=== PATIENT | male | born 1945 | race Caucasian/White ===

== ENCOUNTER 2018-01-18 22:19 | Observation (INO) | payer OTHER ==
[~2018-01-18] VITALS: Ht 177.8 cm; Wt 109.6 kg
[~2018-01-18 22:19] MED LIST: ASPI81 PO; CEPH500C3 PO; CLOP75 PO; ENAL5TAB98 PO; HYDR10TA16 PO; NITR0.4S SL; TOPR50TA PO; ZOCO10TA PO
[2018-01-18 22:30] VITALS: BP 121/61; PULSE 70; RESP 18; TEMP 98.6; O2SAT 95
[2018-01-18] MEDS ORDERED: SIMV80TA PO (22:34)
[2018-01-18] MEDS ORDERED: ENAL5TAB PO (22:34)
[2018-01-18] MEDS ORDERED: ASPI81TA23 PO (22:34)
[2018-01-18] MEDS ORDERED: METO50TA PO (22:34)
--- NOTE | 2018-01-18 22:39 | PD ---
HPI Chief Complaint: Chest pain Time Seen by Provider: 22:31 Travel History International Travel<30 days: No Contact w/Intl Traveler<30days: No Traveled to known affect area: No History of Present Illness HPI 72-year-old male presents to the emergency department by EMS transport from home for complaint of retrosternal chest pain 5/10 intensity. Patient states at home pain was 6/10 in intensity. According to retail operations manager report 3 sublingual nitroglycerin sprays were administered as well as 162 mg of aspirin. Patient prior to arrival to the emergency department at home had already taken 162 mg of aspirin. Patient takes no blood thinning agents. Patient has history of CAD with previous myocardial infarction CABG and pacemaker defibrillator placement. Pacemaker defibrillator battery was placed 2 years ago. Patient's compensation adjuster is Dr. Morton. Patient's EPS physician is Dr. Fink. Patient has history of hypertension and dyslipidemia. Patient denies diabetes. No tobacco use. Patient had associated sensation of shortness of breath and diaphoresis throughout without nausea vomiting or referred neck jaw back shoulder arm pain. Patient did not sustain a defibrillation. Patient is unable to identify exacerbating or alleviating factors. [facility] Past Medical History Narrative Medical CAD, myocardial infarction, cardiac catheterization, pacemaker defibrillator, CABG, hypertension, dyslipidemia; alcohol use in the nursing notes Autoimmune Disease: No Blood Disorders: No Anxiety: Yes Heart Rhythm Problems: No Cancer: No Cardiovascular Problems: Yes High Cholesterol: No Chemotherapy: No Chest Pain: Yes Congestive Heart Failure: Yes Endocrine: No Genitourinary: No Headaches: Yes Hypertension: Yes Musculoskeletal: No Neurologic: No Respiratory: No Myocardial Infarction: Yes Radiation Therapy: No Past Surgical History Abdominal Surgery: No AICD: Yes (micron) Cardiac Surgery: Yes (cabg 03/01) Ear Surgery: No Endocrine Surgery: No Eye Surgery: No Gynecologic Surgery: No Joint Replacement: No Oral Surgery: No Pacemaker: No Thoracic Surgery: No Social History Alcohol Use: Yes (beer q several months) Tobacco Use: No Substance Use: No Allergies-Medications (Allergen,Severity, Reaction): Coded Allergies: No Known Allergies (Verified Allergy, Unknown, 01/19/18) Reported Meds & Prescriptions Reported Meds & Active Scripts Active Reported Enalapril (Enalapril Maleate) 5 Mg Tab 5 Mg PO BID Simvastatin 80 Mg Tab 80 Mg PO DAILY Aspirin EC (Aspirin) 81 Mg Tabdr 81 Mg PO DAILY Metoprolol Tartrate 50 Mg Tab 50 Mg PO BID Review of Systems Except as stated in HPI: all other systems reviewed are Neg General / Constitutional: No: Fever, Chills HENT: No: Congestion Cardiovascular: Positive: Chest Pain or Discomfort, Diaphoresis Respiratory: Positive: Shortness of Breath Gastrointestinal: No: Nausea, Vomiting, Diarrhea, Abdominal Pain Genitourinary: No: Dysuria, Flank Pain Musculoskeletal: No: Myalgias, Arthralgias Skin: No Rash Neurologic: No: Weakness, Dizziness, Syncope Psychiatric: No: Anxiety Hematologic/Lymphatic: No: Easy Bruising Physical Exam Narrative GENERAL: Well-developed well-nourished male no acute distress no respiratory distress SKIN: Warm and dry. HEAD: Normocephalic. EYES: No scleral icterus. No injection or drainage. NECK: Supple, trachea midline. No JVD or lymphadenopathy. CARDIOVASCULAR: Regular rate and rhythm without murmurs, gallops, or rubs. Chest wall: Pacemaker defibrillator left chest wall RESPIRATORY: Breath sounds equal bilaterally. No accessory muscle use. GASTROINTESTINAL: Abdomen soft, non-tender, nondistended. MUSCULOSKELETAL: No cyanosis, or edema. Bilateral radial and dorsalis pedis pulses 2+ to palpation BACK: Nontender without obvious deformity. No CVA tenderness. Data Data Last Documented VS Vital Signs Date Time Temp Pulse Resp B/P (MAP) Pulse Ox O2 Delivery O2 Flow Rate FiO2 01/19/18 00:20 15 01/18/18 23:15 72 134/64 (87) 96 Room Air 01/18/18 22:30 98.6 Orders Orders Electrocardiogram (01/18/18 22:31) Basic Metabolic Panel (Bmp) (01/18/18 22:31) Ckmb (Isoenzyme) Profile (01/18/18 22:31) Complete Blood Count With Diff (01/18/18 22:31) Magnesium (Mg) (01/18/18 22:31) Prothrombin Time / Inr (Pt) (01/18/18 22:31) Act Partial Throm Time (Ptt) (01/18/18 22:31) Troponin I (01/18/18 22:31) Ecg Monitoring (01/18/18 22:31) Bilateral Bp Monitoring (01/18/18 22:31) Iv Access Insert/Monitor (01/18/18 22:31) Oximetry (01/18/18 22:31) Oxygen Administration (01/18/18 22:31) Nitroglycerin 2% Oint (Nitroglycerin 2% (01/18/18 22:45) Sodium Chloride 0.9% Flush (Ns Flush) (01/18/18 22:45) Sodium Chlorid 0.9% 500 Ml Inj (Ns 500 M (01/18/18 22:45) Chest, Single Ap (01/18/18 ) Morphine Inj (Morphine Inj) (01/18/18 23:30) Morphine Inj (Morphine Inj) (01/18/18 23:35) Ondansetron Odt (Zofran Odt) (01/19/18 00:00) CKMB (01/18/18 22:35) CKMB% (01/18/18 22:35) Admit Order (Ed Use Only) (01/19/18 ) Leak Hunter / Telemetry DOTTIE.Q8H (01/19/18 00:47) Diet Heart Healthy (01/19/18 Breakfast) Activity Oob With Assistance (01/19/18 00:47) Notify Dr: Other (01/19/18 00:47) Labs Laboratory Tests Test 01/18/18 22:35 White Blood Count 15.5 TH/MM3 Red Blood Count 4.64 MIL/MM3 Hemoglobin 13.4 GM/DL Hematocrit 39.8 % Mean Corpuscular Volume 85.7 FL Mean Corpuscular Hemoglobin 28.9 PG Mean Corpuscular Hemoglobin Concent 33.7 % Red Cell Distribution Width 12.6 % Platelet Count 263 TH/MM3 Mean Platelet Volume 8.5 FL Neutrophils (%) (Auto) 55.3 % Lymphocytes (%) (Auto) 33.9 % Monocytes (%) (Auto) 6.9 % Eosinophils (%) (Auto) 3.3 % Basophils (%) (Auto) 0.6 % Neutrophils # (Auto) 8.6 TH/MM3 Lymphocytes # (Auto) 5.3 TH/MM3 Monocytes # (Auto) 1.1 TH/MM3 Eosinophils # (Auto) 0.5 TH/MM3 Basophils # (Auto) 0.1 TH/MM3 CBC Comment AUTO DIFF Differential Total Cells Counted 100 Neutrophils % (Manual) 42 % Lymphocytes % 49 % Monocytes % 8 % Basophils % 1 % Neutrophils # (Manual) 6.5 TH/MM3 Differential Comment FINAL DIFF MANUAL Platelet Estimate NORMAL Platelet Morphology Comment NORMAL Red Cell Morphology Comment NORMAL Prothrombin Time 10.7 SEC Prothromb Time International Ratio 1.1 RATIO Activated Partial Thromboplast Time 25.9 SEC Blood Urea Nitrogen 19 MG/DL Creatinine 1.04 MG/DL Random Glucose 140 MG/DL Calcium Level 9.3 MG/DL Magnesium Level 2.0 MG/DL Sodium Level 140 MEQ/L Potassium Level 4.0 MEQ/L Chloride Level 104 MEQ/L Carbon Dioxide Level 28.4 MEQ/L Anion Gap 8 MEQ/L Estimat Glomerular Filtration Rate 70 ML/MIN Total Creatine Kinase 159 U/L Creatine Kinase MB 0.6 NG/ML Troponin I LESS THAN 0.02 NG/ML MDM Medical Decision Making Medical Screen Exam Complete: Yes Emergency Medical Condition: Yes Medical Record Reviewed: Yes Interpretation(s) EKG paced atrial ventricular rhythm rate [address] elevation V2 which is noted on previous EKG 01/30/10 Last Impressions Chest X-Ray 01/18/18 0000 Signed Impressions: CONCLUSION: No acute cardiopulmonary disease. Vital Signs Date Time Temp Pulse Resp B/P (MAP) Pulse Ox O2 Delivery O2 Flow Rate FiO2 01/18/18 23:15 72 16 134/64 (87) 96 Room Air 01/18/18 22:30 98.6 70 18 121/61 (81) 95 CBC & BMP Diagram 01/18/18 22:35 Calcium Level 9.3, Magnesium Level 2.0 Troponin I is less than 0.02, not elevated; CK is 159, elevated CK-MB is 0.6 not elevated Differential Diagnosis Chest pain, ACS, myocardial infarction, arrhythmia, CHF, PE; also to consider musculoskeletal pain esophageal spasm gastritis peptic ulcer disease biliary colic pancreatitis Narrative Course Patient placed on threat monitoring analyst with continuous pulse oximetry; EKG performed shows atrial and ventricle paced rhythm; specimens collected and sent for resulting; patient has received 324 mg of aspirin prior to arrival to the emergency department 3 sublingual nitroglycerin; Nitropaste 1 inch placed to the chest wall and maintenance fluids 50 cc/h normal saline administered Patient resting comfortably with patient's family at bedside aware that first set of cardiac enzymes are in normal range not elevated Patient is aware of plan for observation admission and call placed to [facility] MD Dr Maddox for admission Physician Communication Physician Communication discussed with Dr Ahmed Diagnosis Primary Impression: Chest pain Qualified Codes: R07.2 - Precordial pain Additional Impressions: History of ASCVD (arteriosclerotic cardiovascular disease) H/O acute myocardial infarction Admitting Information Admitting Physician Requests: Observation Merry Stone MD January 18, 2018 22:39
[2018-01-18] MEDS ORDERED: NITROGLYCERIN 2% OINT 1 GM PACKET TOP ONE (22:45)
[2018-01-18] MEDS ORDERED: SODIUM CHLORIDE 0.9% FLUSH 10 ML FLUSH IVF PRN (22:45)
[2018-01-18] MEDS ORDERED: SODIUM CHLORID 0.9% 500 ML INJ 500 ML IV SCH (22:45)
--- NOTE | 2018-01-18 22:52 | RADRPT ---
EXAM DATE: 01/18/2018 10:44 PM EDT AGE/SEX: 72 years / Male INDICATIONS: Chest pain CLINICAL DATA: This is the patient's initial encounter. Patient reports that signs and symptoms have been present for 1 day and indicates a pain score of 7/10. MEDICAL/SURGICAL HISTORY: Cardiovascular disease. CABG. Pacemaker. COMPARISON: No prior [facility] exams available for comparison. FINDINGS: A single AP erect portable view of the chest was obtained and demonstrates the patient status post me jennie sternotomy for bypass grafting procedure. The heart size is moderately enlarged. There is a left subclavian A-V sequential transvenous pacer in place with defibrillator lead. No confluent infiltrat es or effusions are identified. There is apparent mild scarring. The bony thorax is intact. CONCLUSION: No acute cardiopulmonary disease. Electronically signed by: Obey Addison MD 01/18/2018 10:51 PM EDT
[2018-01-18 23:15] VITALS: BP 134/64; PULSE 72; RESP 16; O2SAT 96
[2018-01-18 23:30] VITALS: BP 121/57; PULSE 68; RESP 16; O2SAT 97
[2018-01-18 23:30] LABS: AUTOMATED NEUTROPHIL # 8.6 TH/MM3 (1.8-7.7); BASOPHIL # 0.1 TH/MM3 (0-0.2); BASOPHIL % 0.6 % (0.0-2.0); EOSINOPHIL # 0.5 TH/MM3 (0-0.4); EOSINOPHIL % 3.3 % (0.0-4.0); HEMATOCRIT 39.8 % (39.0-51.0); HEMOGLOBIN 13.4 GM/DL (13.0-17.0); LYMPH % 33.9 % (9.0-44.0); LYMPHOCYTE # 5.3 TH/MM3 (1.0-4.8); MEAN CELL VOLUME 85.7 FL (80.0-100.0); MEAN CORPUSCULAR HEMOGLOBIN 28.9 PG (27.0-34.0); MEAN CORPUSCULAR HGB CONC 33.7 % (32.0-36.0); MEAN PLATELET VOLUME 8.5 FL (7.0-11.0); MONO % 6.9 % (0.0-8.0); MONOCYTE # 1.1 TH/MM3 (0-0.9); NEUT % 55.3 % (16.0-70.0); PLATELET COUNT 263 TH/MM3 (150-450); RED BLOOD COUNT 4.64 MIL/MM3 (4.50-5.90); RED CELL DISTRIBUTION WIDTH 12.6 % (11.6-17.2); WHITE BLOOD COUNT 15.5 TH/MM3 (4.0-11.0)
[2018-01-18] MEDS ORDERED: ONDANSETRON HCL 4 MG/2 ML VIAL IV PUSH ONE (23:30)
[2018-01-18] MEDS ORDERED: MORPHINE SULFATE 2 MG/ML SYRINGE IV PUSH ONE (23:30)
[2018-01-18] MEDS ORDERED: MORPHINE SULFATE 4 MG/ML INJ ONE (23:35)
[2018-01-18 23:40] LABS: INTERNATIONAL NORMALIZED RATIO 1.1 RATIO; PROTHROMBIN TIME - PATIENT 10.7 SEC (9.8-11.6)
[2018-01-18 23:54] LABS: BICARBONATE 28.4 MEQ/L (21.0-32.0); BLOOD UREA NITROGEN 19 MG/DL (7-18); CALCIUM 9.3 MG/DL (8.5-10.1); CHLORIDE 104 MEQ/L (98-107); CREATININE 1.04 MG/DL (0.60-1.30); GLOMERULAR FILTRATION RATE 70 ML/MIN (>89); GLUCOSE,RANDOM 140 MG/DL (74-106); SODIUM (NA) 140 MEQ/L (136-145); TROPONIN I LESS THAN 0.02 NG/ML (0.02-0.05)
[2018-01-19] VITALS (16 sets, daily range): BP systolic 99–136; BP diastolic 51–78; PULSE 68–79; RESP 15–22; TEMP 98–98.4; O2SAT 95–99
[2018-01-19] MEDS ORDERED: ONDANSETRON ODT 4 MG TAB PO ONE
[2018-01-19] MEDS ORDERED: IOHEXOL 350 MG/ML 100 ML BTL (for Cath Lab) OTHER ONE (00:50)
[2018-01-19] MEDS ORDERED: NALOXONE HCL 0.4 MG/ML AMP IV PUSH PRN (01:00)
[2018-01-19] MEDS ORDERED: SODIUM CHLORIDE 0.9% FLUSH 10 ML FLUSH IV FLUSH PRN (01:00)
[2018-01-19] MEDS ORDERED: BISACODYL 10 MG SUPP RECTAL PRN (01:00)
[2018-01-19] MEDS ORDERED: LACTULOSE SYRUP 20 GM/30 ML CUP PO PRN (01:00)
[2018-01-19] MEDS ORDERED: MAGNESIUM HYDROXIDE SUSP 30 ML CUP PO PRN (01:00)
[2018-01-19] MEDS ORDERED: SENNOSIDES 8.6 MG TAB PO PRN (01:00)
[2018-01-19] MEDS ORDERED: ACETAMINOPHEN 325 MG TAB PO PRN (01:00)
--- NOTE | 2018-01-19 01:41 | HHI.HP ---
[facility] Unknown Admission Diagnosis chest pain; h/o NM/CAD Diagnoses: Chief Complaint: Chest pain Travel History International Travel<30 Days: No Contact w/Intl Traveler <30 Da: No Traveled to Known Affected Are: No History of Present Illness 72-year-old male with a history of anxiety, CHF, hypertension, CAD, NM, pacemaker/defibrillator presents to the ED with complaints of chest pain. Patient states about 7 PM yesterday evening he developed chest pressure, 7/10, constant with radiation to his back and associated shortness of breath and diaphoresis. He states it has felt the same as his other heart attack in the past. He states so far the morphine has subsided the pain. He is unsure of the last time he has had a cardiac cath but he does follow with Dr. Morton outpatient. He denies any recent illness no fever or chills. Review of Systems Except as stated in HPI: all other systems reviewed are Neg Past Family Social History Past Medical History CAD NM CHF Hypertension Dyslipidemia Past Surgical History Pacemaker/defibrillator CABG 2004 Reported Medications Reported Meds & Active Scripts Active Reported Enalapril (Enalapril Maleate) 5 Mg Tab 5 Mg PO BID Simvastatin 80 Mg Tab 80 Mg PO DAILY Aspirin EC (Aspirin) 81 Mg Tabdr 81 Mg PO DAILY Metoprolol Tartrate 50 Mg Tab 50 Mg PO BID Allergies: Coded Allergies: No Known Allergies (Verified Allergy, Unknown, 01/19/18) Active Ordered Medications Current Medications Medications (Trade) Dose Ordered Sig/Ruth Ann Route Start Time Stop Time Status Last Admin Sodium Chloride 500 ml @ 50 mls/hr Q10H IV 01/18/18 22:45 01/19/18 08:44 01/18/18 23:16 (NS Flush) 2 ml UNSCH PRN IV FLUSH 01/19/18 01:00 (NS Flush) 2 ml BID IV FLUSH 01/19/18 09:00 (Tylenol) 650 mg Q4H PRN PO 01/19/18 01:00 (Lovenox Inj) 40 mg Q24H SQ 01/19/18 03:00 (Narcan Inj) 0.4 mg UNSCH PRN IV PUSH 01/19/18 01:00 (Milk Of Magnesia Liq) 30 ml Q12H PRN PO 01/19/18 01:00 (Senokot) 17.2 mg Q12H PRN PO 01/19/18 01:00 (Dulcolax Supp) 10 mg DAILY PRN RECTAL 01/19/18 01:00 (Lactulose Liq) 30 ml DAILY PRN PO 01/19/18 01:00 Family History Family history significant for heart disease Social History Patient denies any tobacco, alcohol or illicit drug use Physical Exam Vital Signs Vital Signs Date Time Temp Pulse Resp B/P (MAP) Pulse Ox O2 Delivery O2 Flow Rate FiO2 01/18/18 23:15 72 16 134/64 (87) 96 Room Air 01/18/18 22:30 98.6 70 18 121/61 (81) 95 Physical Exam GENERAL: This is a well-nourished, obese patient, in no apparent distress. SKIN: No rashes, ecchymoses or lesions. Cool and dry. HEAD: Atraumatic. Normocephalic. No temporal or scalp tenderness. EYES: Pupils equal round and reactive. Extraocular motions intact. No scleral icterus. No injection or drainage. CARDIOVASCULAR: Regular rate and rhythm without murmurs, gallops, or rubs. RESPIRATORY: Clear to auscultation. Breath sounds equal bilaterally. No wheezes , rales, or rhonchi. GASTROINTESTINAL: Abdomen soft, non-tender, nondistended. MUSCULOSKELETAL: Extremities without clubbing, cyanosis, or edema.No calf tenderness. NEUROLOGICAL: Awake and alert. Normal speech. Laboratory Laboratory Tests Test 01/18/18 22:35 White Blood Count 15.5 Red Blood Count 4.64 Hemoglobin 13.4 Hematocrit 39.8 Mean Corpuscular Volume 85.7 Mean Corpuscular Hemoglobin 28.9 Mean Corpuscular Hemoglobin Concent 33.7 Red Cell Distribution Width 12.6 Platelet Count 263 Mean Platelet Volume 8.5 Neutrophils (%) (Auto) 55.3 Lymphocytes (%) (Auto) 33.9 Monocytes (%) (Auto) 6.9 Eosinophils (%) (Auto) 3.3 Basophils (%) (Auto) 0.6 Neutrophils # (Auto) 8.6 Lymphocytes # (Auto) 5.3 Monocytes # (Auto) 1.1 Eosinophils # (Auto) 0.5 Basophils # (Auto) 0.1 CBC Comment AUTO DIFF Prothrombin Time 10.7 Prothromb Time International Ratio 1.1 Activated Partial Thromboplast Time 25.9 Blood Urea Nitrogen 19 Creatinine 1.04 Random Glucose 140 Calcium Level 9.3 Magnesium Level 2.0 Sodium Level 140 Potassium Level 4.0 Chloride Level 104 Carbon Dioxide Level 28.4 Anion Gap 8 Estimat Glomerular Filtration Rate 70 Total Creatine Kinase 159 Creatine Kinase MB 0.6 Troponin I LESS THAN 0.02 Result Diagram: 01/18/18223401/18/182234 Imaging Last Impressions Chest X-Ray 01/18/18 0000 Signed Impressions: CONCLUSION: No acute cardiopulmonary disease. Caprini VTE Risk Assessment Caprini VTE Risk Assessment: Mod/High Risk (score >= 2) Caprini Risk Assessment Model Point Value = 1 Point Value = 2 Point Value = 3 Point Value = 5 Age 41-60 Minor surgery BMI > 25 kg/m2 Swollen legs Varicose veins or History of unexplained or recurrent spontaneous Oral contraceptives or hormone replacement Sepsis (< 1 month) Serious lung disease, including pneumonia (< 1 month) Abnormal pulmonary function Acute myocardial infarction Congestive heart failure (< 1 month) History of inflammatory bowel disease Medical patient at bed rest Age 61-74 Arthroscopic surgery Major open surgery (> 45 min) Laparoscopic surgery (> 45 min) Malignancy Confined to bed (> 72 hours) Immobilizing plaster cast Central venous access Age >= 75 History of VTE Family history of VTE Factor V Leiden Prothrombin [id number] Lupus anticoagulant Anticardiolipin antibodies Elevated serum homocysteine Heparin-induced thrombocytopenia Other congenital or acquired thrombophilia Stroke (< 1 month) Elective arthroplasty Hip, pelvis, or leg fracture Acute spinal cord injury (< 1 month) Prophylaxis Regimen Total Risk Factor Score Risk Level Prophylaxis Regimen 0-1 Low Early ambulation 2 Moderate Order ONE of the following: *Sequential Compression Device (SCD) *Heparin 5000 units SQ BID 3-4 Higher Order ONE of the following medications: *Heparin 5000 units SQ TID *Enoxaparin/Lovenox 40 mg SQ daily (WT < 150 kg, CrCl > 30 mL/min) *Enoxaparin/Lovenox 30 mg SQ daily (WT < 150 kg, CrCl > 10-29 mL/min) *Enoxaparin/Lovenox 30 mg SQ BID (WT < 150 kg, CrCl > 30 mL/min) AND/OR *Sequential Compression Device (SCD) 5 or more Highest Order ONE of the following medications: *Heparin 5000 units SQ TID (Preferred with Epidurals) *Enoxaparin/Lovenox 40 mg SQ daily (WT < 150 kg, CrCl > 30 mL/min) *Enoxaparin/Lovenox 30 mg SQ daily (WT < 150 kg, CrCl > 10-29 mL/min) *Enoxaparin/Lovenox 30 mg SQ BID (WT < 150 kg, CrCl > 30 mL/min) AND *Sequential Compression Device (SCD) Assessment and Plan Assessment and Plan 72-year-old male with a history of anxiety, CHF, hypertension, CAD, NM, pacemaker/defibrillator presents to the ED with complaints of chest pain. Chest pain, rule out ACS Troponin 0.02 EKG reviewed and shows a paced rhythm -Serial troponin and EKGs -Monitor telemetry -Continue Nitropaste Q6H Leukocytosis, WBC 15.5 likely stress related -Trend CBC -Chest x-ray reviewed and shows no acute pulmonary disease Hypertension, chronic, controlled -Resume home medications enalapril and metoprolol Hyperlipidemia, chronic-resume home simvastatin DVT prophylaxis: Lovenox Discussed Condition With Patient and RN Maude Peter January 19, 2018 01:41
[2018-01-19 01:53] LABS: BASOPHILS 1 % (0-2); LYMPHOCYTES 49 % (9-44); MONOCYTES 8 % (0-8); NEUTROPHIL # MANUAL DIFF 6.5 TH/MM3 (1.8-7.7); POLYS (SEG NEUTROPHILS) 42 % (16-70)
[2018-01-19] MEDS ORDERED: HEPARIN SODIUM - IV 10,000 UNITS/10 ML VIAL IV PUSH ONE (05:45)
[2018-01-19] MEDS ORDERED: HEPARIN-D5W 25,000 U/250 ML 250 ML IV PRN (05:45)
[2018-01-19] MEDS ORDERED: NITROGLYCERIN 2% OINT 1 GM PACKET TOPICAL SCH (06:00)
[2018-01-19] MEDS: ENOXAPARIN SODIUM 40 MG/0.4 ML SYRINGE SQ SCH (06:05)
[2018-01-19] MEDS ORDERED: MIDAZOLAM HCL 2 MG/2 ML VIAL IV PUSH SCH (07:45)
[2018-01-19] MEDS ORDERED: DIAZEPAM 10 MG TAB PO SCH (07:45)
[2018-01-19] MEDS ORDERED: diphenhydrAMINE HCL 50 MG CAP PO SCH (07:45)
--- NOTE | 2018-01-19 08:15 | MB ---
cc: Mars Morton MD DATE: 01/19/2018 REASON FOR CONSULTATION: Chest pain, abnormal cardiac enzymes. HISTORY OF PRESENT ILLNESS: The patient is a 72-year-old white male with a history of ischemic cardiomyopathy, coronary artery disease, hypertension, AICD implant, who was in his usual state of health up until 7 p.m. last night when he began to experience substernal chest pressure without associated shortness of breath, nausea or diaphoresis. The chest discomfort persisted for at least the next 2-3 hours and was considerably relieved with intravenous morphine. He denies any other chest discomforts. He also denies pleurisy, dizziness, syncope, near syncope, palpitations, pedal edema, paroxysmal nocturnal dyspnea. PAST MEDICAL HISTORY: 1. Coronary artery disease, status post myocardial infarction in 1997, status post anterior myocardial infarction February 2005. In February 2005, he subsequently underwent a coronary artery bypass graft surgery with a left internal mammary artery to the LAD, jump graft from the left internal mammary artery to the diagonal, 3 separate vein grafts to the ramus intermedius, obtuse marginal and posterior descending artery. March 2006, Dr. Myron Olivas performed stent of the ostium and a vein graft to the posterior descending artery with a 3.5 mm Cypher stent. In April 2007, Dr. Myron Olivas performed stent of the jump graft to the diagonal with a 2.5 mm Cypher and apparently just angioplasty of the proximal vein graft to the posterior descending artery. 2. Severe ischemic cardiomyopathy with ejection fraction 30-35% by echo 09/11/2015. 3. History of Medtronic AICD implant. 4. Hyperlipidemia. 5. Hypertension. CARDIAC MEDICATIONS AT HOME: 1. Metoprolol tartrate 50 mg b.i.d. 2. Ecotrin 81 mg daily. 3. Simvastatin 80 mg at bedtime. 4. Enalapril 5 mg b.i.d. ALLERGIES: NO KNOWN DRUG ALLERGIES. FAMILY HISTORY: Noncontributory. SOCIAL HISTORY: The patient is a former smoker. There is no history of alcohol abuse. REVIEW OF SYSTEMS: As in history of present illness, otherwise negative or noncontributory. He also denies headache, abdominal pain, melena, dyspepsia, bright red blood per rectum, recent flu symptoms. PHYSICAL EXAMINATION: VITAL SIGNS: His blood pressure 112/56 with a pulse of 70, respirations 16. GENERAL: He is a well-developed, well-nourished white male in no acute distress. NECK: Jugular venous pressure is normal. Carotid pulses are 2+ bilaterally and without bruits. CHEST: Reveals clear lungs feldman. CARDIAC: He has a regular rhythm and rate without S3, S4, or murmur. ABDOMEN: He has a soft, nontender abdomen. Bowel sounds are present. There is no definite hepatosplenomegaly. EXTREMITIES: Reveals no clubbing, cyanosis or edema. Peripheral pulses are normal throughout. LABORATORY DATA: EKG shows atrial sensed ventricular paced rhythm. LABORATORY DATA: Includes WBC 15.5, hemoglobin 13.4, platelets 263. Potassium 4.0, BUN 19, creatinine 1.04, troponin 1.29, CK 159, INR 1.1. Chest x-ray shows no acute disease. IMPRESSION: Probable non-ST elevation myocardial infarction in this is a 72-year-old white male with a history of coronary artery disease, severe ischemic cardiomyopathy, hypertension, hyperlipidemia, automated implantable cardioverter defibrillator implant. At this time, he is angina free. His symptoms and elevation in troponin level are most suggestive of unstable angina/non-ST elevation myocardial infarction. Because of the instability of his symptoms, he has been recommended cardiac catheterization with possible percutaneous coronary or graft intervention. The nature of these procedures and potential risks including, but not limited to , myocardial infarction, stroke, arrhythmia, bleeding, infection, and renal failure have been outlined to the patient. He agrees to proceed. RECOMMENDATIONS: 1. Cardiac catheterization today. 2. Continue his usual home cardiac medications. 3. Continue heparin drip. 4. Check a fasting lipid profile. Mars Morton MD G[facility]/DL , 07:45 AM , 08:14 AM BARI
[2018-01-19] MEDS: SODIUM CHLORIDE 0.9% FLUSH 10 ML FLUSH IV FLUSH SCH ×2 (09:00→20:29)
[2018-01-19] MEDS: METOPROLOL TARTRATE 50 MG TAB PO SCH ×2 (10:15→20:28)
[2018-01-19] MEDS: ATORVASTATIN 40 MG TAB PO SCH (10:15)
[2018-01-19] MEDS: ENALAPRIL MALEATE 5 MG TAB PO SCH ×2 (10:25→20:28)
[2018-01-19] MEDS ORDERED: HEPARIN SODIUM - IV 10,000 UNITS/10 ML VIAL IV PUSH PRN ×2 (11:45)
[2018-01-19] MEDS ORDERED: MIDAZOLAM HCL 2 MG/2 ML VIAL ONE (12:29)
[2018-01-19] MEDS ORDERED: HEPARIN-NS/PF INJ 1,500 ML ONE (12:29)
[2018-01-19] MEDS ORDERED: LIDOCAINE HCL 1% PF 30 ML VIAL ONE (12:59)
[2018-01-19] MEDS ORDERED: HEPARIN SODIUM - IV 10,000 UNITS/10 ML VIAL ONE (13:30)
[2018-01-19] MEDS ORDERED: SODIUM CHLOR 0.9% 1000 ML INJ 1,000 ML IV SCH (14:05)
--- NOTE | 2018-01-19 14:14 | CATHPROC ---
Desktime HIS Report Study Information Study Number Admission Scheduled Start Study Start [id number] Jan 19 2018 12:49AM 01/19/2018 Jan 19 2018 11:43AM [place] [facility] Cardiac Catheterization Admit Source Facility Department Emergency department [facility] - Social Sciences Research Scientist Physician and Clinical Staff Initial Mars Spence Vocational Examiner Shayne RN, Roscoe RecordMarga Burns,RT(R) Scrub Janett Sosa ,RT(R) Procedures Performed Procedure Location (Site) Vessel Name Angiogram LV LV Ventricle Coronary Angiograms LCA Left Coronary Coronary Angiograms RCA Right Coronary Coronary Angiograms MEJIAS-LAD Left Coronary Coronary Angiograms SVG-DIAG Left Coronary Coronary Angiograms SVG-OM CIRC Coronary Angiograms SVG-RCA Right Coronary L Heart Cath Wire insertion Fem Art (right) Femoral Art Equipment Time Automation Controls Engineer Description Size Mfg Part Number Used/Scraped TRANSDUCER, ELLA [id number] 11:44 CriticalBlue GIPSON * Used W/STOCKCOCK *[id number] 13:52 [employer]age MEDICAL VASCADE, FR6 CLOSURE SYSTEM FR 6\7 Used *[id number] *[id number] *[id number] [id number] *[id number] [id number] *[id number] [id number] *[id number] *[id number] 534-621T *[id number] 534-672T *[id number] [id number] *[id number] [id number] *[id number] [id number] *[id number] [id number] *[id number] 11:44 MEDLINE INDUSTRIES PACK, CCL CUSTOM * Used *[id number] 11:44 MEDLINE PACER PEN, SKIN DUAL W/ RULER * Used *[id number] 11:44 [employer] SHEATH, FR6.5 PRELUDE 11CM FR 6.5 038ACT Used *[id number] 11:44 [employer] MEDICAL WIRE, 3MMJ .035 180CM 180CM Used *[id number] 11:44 NAMIC MANIFOLD, 4 PORT * Used *[id number] 11:44 [employer]COMED OMNIPAQUE, 350 MG, 150ML 150ML [id number] Used 13:25 NYCOMED OMNIPAQUE, 350 MG, 50ML 50ML [id number] Used 13:14 NYCOMED OMNIPAQUE, 350 MG, 50ML 50ML [id number] Used [id number] 11:44 [employer] MEDICAL BLANKET,WARM AIR CCL * Used *[id number] 13:37 [employer] PRIME WIRE, VERRATA 185CM 185CM Used *[id number] Equipment Model, Serial, Lot Number and Expiration Data Description Model Number Serial Number Lot Number Expiration Date PRIME WIRE, VERRATA 185CM 52867 [id number] 12-25-2020 History: Current Medications Medication Dosage/Unit Route Frequency Last Date/Time Taken Statins (any) ASA LOPRESSOR History: Allergies Allergy Reaction No Known Allergies History: Risk Factors Family History of Hypertension Dyslipidemia Previous ND Previous Heart Failure Premature CAD Yes Yes Yes Yes Yes Prior Valve Prior PCI Prior PCIDate Prior CABG Prior CABGDate Surgery No Yes 04/28/2007 Yes 02/25/2005 Cerebrovascular Peripheral Artery Chronic Lung On Dialysis Diabetes Disease Disease Disease No No No No No History: Symptoms/Diagnosis Selection Items Chest pain SOB History: Stress Tests Stress or Imaging Studies Performed No History: Other Disease Selection Items CAD CHF HTN History: Other Current Smoker Method Quit No Cigarettes 14 Years Ago Labs Hgb (g/dl) Hct (%) WBC (l/cumm) Platelets (thousands) 11.60-17.00 35.00-51.00 4.00-11.00 150.00-450.00 13.4 39.8 15.5 263 Glucose (mg/dl) BUN (mg/dl) Creatinine (mg/dl) BUN:Creatinine (1:x) 74.00-106.00 7.00-18.00 0.50-1.30 10.00-20.00 140 19 1.0 19 Na (meq/l) K (meq/l) 136.00-145.00 3.50-5.10 140 4 INR (PTT:PT) 0.90-1.10 1.1 Troponin I (ng/ml) CPK (u/l) CPK-MB (ng/ML) 0.02-0.05 26.00-308.00 0.50-3.60 4.39 159 0.6 Medication Medication Total Dose (Bolus/Oral) Medication Total Dosage/Unit 1% XYLOCAINE 20 mL FENTANYL 50 mcg HEPARIN 8000 units VERSED 2 mg Medications (Bolus/Oral) Medication Time Given Dosage/Unit Administered By Reason VERSED 01/19/2018 12:55:14 PM 2 mg Roscoe Bella RN 2 mg VERSED given in lab by Roscoe Bella RN in Right Antecubital via Peripheral IV. Ordered by Mars Morton. FENTANYL 01/19/2018 12:56:02 PM 50 mcg Roscoe Bella RN 50 mcg FENTANYL given in lab by Roscoe Bella RN in Right Antecubital via Peripheral IV. Ordered by Mars Tyler. 1% XYLOCAINE 01/19/2018 12:56:07 PM 20 mL Mars Morton 20 mL 1% XYLOCAINE given in lab by Mars Morton in Right Groin via Subcutaneous. HEPARIN 01/19/2018 1:30:30 PM 8000 units Roscoe Bella RN 8000 units HEPARIN given in lab by Roscoe Bella RN in Right Antecubital via Peripheral IV. Ordered by Mars Morton. Medication (Drip) Medication Time Given Dosage/Unit Concentration/Unit Diluent (ml) Solution IV Solutions 01/19/2018 12:18:20 PM 50 mL (IV) NaCl .9 IV Solutions given in lab by Roscoe Bella RN in Right Antecubital via Peripheral IV. Pump/Drip Flow u sing NaCl .9. Initial Case Assessment Cardiovascular HR Rhythm NIBP Chest Pain 70 SR 122/69 0 Edema Present Skin color Skin None Normal Warm Dry Circulatory - Right Pulses Dorsalis Pedis Femoral 2 1 Scale (0,1,2,3,4,d) Circulatory - Left Pulses Dorsalis Pedis Femoral 2 1 Scale (0,1,2,3,4,d) Neurological State Oriented to time-place- Alert Moves all extremities person Respiration - General Respiration Rate SpO2 (%) O2 (lpm) (B/min) 17 99 2 Chronological Log Time Study Chronological Log 12:17:02 Patient arrived via Bed. 12:18:09 Patient Name, D.O.B, / Armband Verified By R.N. 12:18:09 Consent signed by the physician and the patient and verified by the Social Sciences Research Scientist staff. 12:18:10 Pre-op and post- op instructions given; patient acknowledges understanding of instructions. 12:18:10 Verbal Stimulation=2 Physical Stimulation=2 Airway=2 Respiration=2 TOTAL=8. (0=absent, 1=li mited, 2=present) 12:18:12 Presedation assessment performed by Social Sciences Research Scientist RN. 12:18:15 Patient has been NPO for More than 6Hrs. 12:18:16 Skin Breakdown- none 12:18:16 Patient Warmer Placed on the Table. 12:18:17 Carissa Prominences Protected 12:18:19 A # 20 IV was noted in the Antecubital (left). Grade = 0 12:18:19 A # 18 IV was noted in the Antecubital (right). Grade = 0 12:18:20 IV Solutions given in lab by Roscoe Bella RN in Right Antecubital via Peripheral IV. Pump/D rip Flow using NaCl .9. 12:18:21 History and physical on the chart or being dictated. Assessment: Initial Case, HR=70 BPM, Rhythm=SR, JTYZ=527/69 mmhg, Chest Pain=0, Edema=None, Col or=Normal, Skin = Warm, Dry Right Pulses: Yobani Ped=2, Femoral=1 12:18:21 Left Pulses: Yobani Ped=2, Femoral=1 Neurological: State=Alert, Ox3, LAZAR Respiration: Resp=17 B/min, SpO2=99 %, O2=2 lpm 12:28:10 Reference ECG taken Vitals capture started with the following parameters, Patient=Adult, Interval=5 min, Initial Pr ltyvdp=066 mmHg, 12:28:12 Deflation Rate=5 mmHg, Cuff placed on Left Arm 12:28:54 HR=69 bpm, ZPKZ=909/69 mmhg, HiI5=076.0 %, Resp=13 B/min 12:31:29 Bilateral groins prepped with 2% chlorhexidine, and draped after a 3 minute waiting time. 12:33:53 HR=69 bpm, LNIZ=338/65 mmhg, QaQ0=648.0 %, Resp=15 B/min 12:38:08 MD paged 12:38:50 HR=69 bpm, TWGZ=042/74 mmhg, VwO3=832.0 %, Resp=16 B/min 12:40:14 Pressure channel 1 zeroed. 12:42:32 MD responded 12:43:51 HR=69 bpm, DJFZ=021/76 mmhg, DdS2=952.0 %, Resp=12 B/min 12:48:53 HR=70 bpm, UTBK=388/75 mmhg, EyD4=510.0 %, Resp=15 B/min 12:52:23 MD arrived. 12:53:56 HR=69 bpm, ULWK=756/74 mmhg, SpO2=99.0 %, Resp=20 B/min Time Out. Correct patient, correct procedure, correct physician, labs, allergies, and equipment verified with roofing laborer 12:54:49 team present. Fire risk assesment completed (see hard stop sheet for coding). Time Out Conc urred by MD and individual staff in procedure. 12:55:14 2 mg VERSED given in lab by Roscoe Bella RN in Right Antecubital via Peripheral IV. Ordered by Mars Morton. 12:55:26 Case Start 12:56:02 50 mcg FENTANYL given in lab by Roscoe Bella RN in Right Antecubital via Peripheral IV. Ord ered by Mars Morton. 12:56:07 20 mL 1% XYLOCAINE given in lab by Mars Morton in Right Groin via Subcutaneous. 12:58:57 HR=70 bpm, NMYO=446/61 mmhg, SpO2=96.0 %, Resp=13 B/min 13:02:29 Access site was Right Femoral Artery. 13:02:46 A SHEATH, FR6.5 PRELUDE 11CM FR 6.5 was advanced into the Fem Art (right) using the Percuta neous technique. A JL 4.0 INFINITI CATHETER FR 6 was advanced over a wire. OMNIPAQUE, 350 MG, 150ML 150ML was us ed for 13:03:42 injections. 13:03:52 HR=69 bpm, HULP=252/61 mmhg, SpO2=97.0 %, Resp=12 B/min Recorded Pressure: Ao, HR=70, Condition=Condition 1 13:04:50 (Aorta) Ao 99/54/72 After removing the current catheter a 3DRC INFINITI CATHETER FR 6 was advanced over a WIRE, 3MM J .035 180CM 13:06:44 180CM. 13:07:23 The RCA was injected and visualized at various angles. OMNIPAQUE, 350 MG, 150ML 150ML used . 13:07:44 The SVG-OM was injected and visualized at various angles. OMNIPAQUE, 350 MG, 150ML 150ML us ed. 13:08:55 HR=70 bpm, OMCU=265/55 mmhg, SpO2=94.0 %, Resp=14 B/min 13:08:58 The MEJIAS-LAD was injected and visualized at various angles. OMNIPAQUE, 350 MG, 150ML 150ML used. After removing the current catheter a LCB INFINITI CATHETER FR 6 was advanced over a WIRE, 3MMJ .035 180CM 13:11:03 180CM. 13:12:16 The SVG-DIAG was injected and visualized at various angles. OMNIPAQUE, 350 MG, 150ML 150ML used. After removing the current catheter a MPA-2 INFINITI CATHETER FR 6 was advanced over a WIRE, 3M MJ .035 180CM 13:12:33 180CM. 13:13:56 HR=69 bpm, YUVP=018/55 mmhg, SpO2=95.0 %, Resp=12 B/min After removing the current catheter a RCB INFINITI CATHETER FR 6 was advanced over a WIRE, 3MMJ .035 180CM 13:17:02 180CM. 13:18:55 HR=70 bpm, ACFC=352/61 mmhg, SpO2=94.0 %, Resp=14 B/min After removing the current catheter a JR 4.0 INFINITI CATHETER FR 6 was advanced over a WIRE, 3 MMJ .035 180CM 13:20:41 180CM. After removing the current catheter a AL 1 INFINITI CATHETER FR 6 was advanced over a WIRE, 3MM J .035 180CM 13:23:23 180CM. 13:23:54 HR=69 bpm, SREB=718/62 mmhg, SpO2=95.0 %, Resp=15 B/min 13:28:25 The SVG-RCA was injected and visualized at various angles. OMNIPAQUE, 350 MG, 150ML 150ML u sed. 13:28:57 HR=69 bpm, QEGX=681/59 mmhg, SpO2=97.0 %, Resp=14 B/min After removing the current catheter a JL 4.5 GUIDE CATHETER FR 6 was advanced over a WIRE, 3MMJ .035 180CM 13:30:20 180CM. 13:30:30 8000 units HEPARIN given in lab by Roscoe Bella RN in Right Antecubital via Peripheral IV. Ordered by Mars Morton. After removing the current catheter a JL 3.5 INFINITI CATHETER FR 6 was advanced over a WIRE, 3 MMJ .035 180CM 13:32:55 180CM. 13:33:56 HR=69 bpm, PYNT=529/68 mmhg, SpO2=98.0 %, Resp=14 B/min 13:34:51 The LCA was injected and visualized at various angles. OMNIPAQUE, 350 MG, 150ML 150ML used . STUMP After removing the current catheter a AL 1 GUIDE CATHETER FR 6 was advanced over a WIRE, 3MMJ . 035 180CM 13:35:42 180CM. 13:37:00 Activated Clotting Time Drawn 13:38:57 HR=69 bpm, OVSQ=976/66 mmhg, SpO2=97.0 %, Resp=14 B/min After removing the current catheter a MPA-1 GUIDE CATHETER FR 6 was advanced over a WIRE, 3MMJ .035 180CM 13:39:05 180CM. 13:41:41 ACT (Normal Range 90-180) = 242 13:42:10 A PRIME WIRE, VERRATA 185CM 185CM was inserted via Fem Art (right). 13:43:56 HR=69 bpm, FWVD=555/76 mmhg, SpO2=98.0 %, Resp=13 B/min 13:44:09 Flow Wire was was placed in the SVG-RCA. The IFR measures 0.94 Percent. 13:45:45 The wire was removed. 13:48:14 Catheter was removed A PIGTAIL STR INFINITI CATHETER FR 6 was advanced over a wire. OMNIPAQUE, 350 MG, 150ML 150ML w as used for 13:48:25 injections. Recorded Pressure: LV, HR=69, Condition=Condition 1 13:48:30 (Left Ventricle) LV 119/13/32 13:49:51 The LV was injected at 12 cc/sec for a total of 42. OMNIPAQUE, 350 MG, 50ML 50ML used. Recorded Pressure: LV, Ao, HR=69, Condition=Condition 1 13:50:18 (Left Ventricle) LV 111/11/22, (Aorta) Ao 107/52/74 13:50:33 Catheter was removed 13:50:51 An injection in the Fem Art (right) was made through the SHEATH, FR6.5 PRELUDE 11CM FR 6.5. 13:51:18 Vitals capture stopped. 13:51:48 VASCADE, FR6 CLOSURE SYSTEM FR 6\7 placement in the Fem Art (right) 13:52:43 Case End Vitals capture started with the following parameters, Patient=Adult, Interval=5 min, Initial Pr fnrvcu=996 mmHg, 13:53:48 Deflation Rate=5 mmHg, Cuff placed on Left Arm 13:54:01 Sterile dressing applied to site 13:54:03 No case complications noted. 13:54:10 Cine recording checked. 13:54:25 Bedside Report will be given. 13:54:26 Implantable Device card placed in patient's chart. 13:54:29 HR=69 bpm, OXFT=568/76 mmhg, SwE5=610.0 %, Resp=17 B/min 13:55:03 A Left Heart Cath was performed. 13:59:30 HR=69 bpm, XGAJ=511/76 mmhg, SpO2=99.0 %, Resp=14 B/min 14:10:40 Patient moved to stretcher End Study - Contrast Media Used In Study Contrast Total Opened (mL) Total Used (mL) Total Wasted (mL) Omnipaque 190 190 0 End Study - Maximum Contrast Load Max Contrast Load (mL) 565.9 End Study - Radiation Exposure Fluoro Time (minutes) 19.7 End Study - Patient Disposition Complications Transferred To Interventional Outcome No Telemetry Bed No attempt made
[2018-01-19] MEDS ORDERED: SODIUM CHLOR 0.9% 250 ML INJ 250 ML IV PRN (14:15)
[2018-01-19] MEDS ORDERED: ATROPINE SULFATE 1 MG/ML VIAL IV PRN (14:15)
[2018-01-19] MEDS ORDERED: MISC INFORMATION XX ONE (14:15)
--- NOTE | 2018-01-19 15:37 | MA ---
cc: Mars Morton MD DATE: 01/19/2018 PROCEDURE: Left heart catheterization, selective coronary and graft angiography, left ventriculography, instant wave-free ratio (IFR) determination of the vein graft to the right coronary artery. PROCEDURE NOTES: The patient was brought to the cardiac catheterization laboratory in a fasting state after having signed informed consent. The right groin was prepped and draped as per policy and anesthetized with 1% lidocaine. Arterial access was obtained via the right femoral artery and a 6-[place] sheath placed. Coronary arteriography was performed using 6-[place] Eric left 3.5 and right progressive catheters. The left internal mammary artery graft and vein graft to the obtuse marginal was engaged with the progressive right catheter. The vein graft to the ramus intermedius was engaged with a left coronary bypass catheter. Engaging the vein graft to the right coronary artery was difficult. It was finally engaged with an Amplatz left 1.0. Left ventriculography was done using a standard 6-[place] pigtail. IFR measurement was done as described below. There were no apparent immediate complications. Vascade was used to close his arteriotomy site with good hemostasis. HEMODYNAMIC DATA: Left ventricle 110 with an end-diastolic pressure of 20. Aorta 107/52 with a mean of 74. There was no significant transvalvular aortic gradient on pullback of the pigtail catheter. CORONARY ARTERIOGRAPHY: The left main appears to be totally occluded at its origin. The right coronary artery is totally occluded proximally. GRAFT ANGIOGRAPHY: The left internal mammary artery to the LAD is widely patent. A reported jump graft from the left internal mammary artery to a diagonal is not seen and presumed to be totally occluded. The vein graft to the ramus intermedius is widely patent. The vein graft to the obtuse marginal is widely patent. The vein graft to the right coronary artery demonstrates a stent in its very proximal portion. There appears to be diffuse up to 50-60% re-stenosis of the stent. The rest of the graft is large in caliber and has mild diffuse luminal irregularities. LEFT VENTRICULOGRAPHY: Contrast injection of the left ventricle shows the mid to basal inferior wall to be mildly hypokinetic. All other segments are akinetic. Ejection fraction is estimated at 20-25%. INSTANT WAVE FREE RATIO DETERMINATION: Adequate heparin was given to achieve an ACT of 242 seconds. Using a 6-[place] multipurpose guiding catheter, the ostium of the vein graft to the right coronary artery was re-engaged. A pressure wire was normalized and then advanced distal to the proximal disease. The IFR was measured at 0.96. CONCLUSIONS: 1. Severe left main and 3-vessel [place] coronary artery disease. 2. Patent left internal mammary artery to the LAD and patent vein graft to the obtuse marginal 3. Patent vein graft to the ramus intermedius. Moderate disease within a previously placed stent in the proximal portion of the vein graft to the right coronary artery, now status post IFR measurement confirming the absence of hemodynamically significant disease. A reported jump graft from the left internal mammary artery to the diagonal is not seen and presumed to be totally occluded. 4. Severely reduced left ventricular systolic function with ejection fraction estimated at 20% to 25%. MD GILBERTO Bautista/AUGUSTO , 02:04 PM , 03:36 PM BARI
[2018-01-19] MEDS: SODIUM CHLOR 0.9% 1000 ML INJ 1,000 ML IV SCH (17:45)
--- NOTE | 2018-01-19 18:19 | EKG ---
Date Performed: 01/18/2018 Time Performed: 22:27:13 PTAGE: 72 years EKG: ELECTRONIC ATRIAL PACEMAKER ELECTRONIC VENTRICULAR PACEMAKER Since previous tracing, no sig nificant change noted ABNORMAL RHYTHM ECG PREVIOUS TRACING : 01/30/2010 06.07 DOCTOR: Pooja López Interpretating Date/Time 01/19/2018 18:18:27
--- NOTE | 2018-01-19 18:20 | EKG ---
Date Performed: 01/19/2018 Time Performed: 04:44:39 PTAGE: 72 years EKG: ELECTRONIC ATRIAL PACEMAKER ELECTRONIC VENTRICULAR PACEMAKER Since previous tracing, no sig nificant change noted ABNORMAL RHYTHM ECG PREVIOUS TRACING : 01/18/2018 22.27 DOCTOR: Pooja López Interpretating Date/Time 01/19/2018 18:19:03
[2018-01-20] VITALS (11 sets, daily range): BP systolic 123–137; BP diastolic 67–80; PULSE 69–82; RESP 19–20; TEMP 98–98.5; O2SAT 96–97
[2018-01-20] MEDS: SODIUM CHLOR 0.9% 1000 ML INJ 1,000 ML IV SCH (03:45)
[2018-01-20] MEDS: ENOXAPARIN SODIUM 40 MG/0.4 ML SYRINGE SQ SCH (03:45)
[2018-01-20 06:16] LABS: BICARBONATE 29.1 MEQ/L (21.0-32.0); BLOOD UREA NITROGEN 9 MG/DL (7-18); CALCIUM 8.8 MG/DL (8.5-10.1); CHLORIDE 103 MEQ/L (98-107); CREATININE 0.88 MG/DL (0.60-1.30); GLOMERULAR FILTRATION RATE 85 ML/MIN (>89); GLUCOSE,RANDOM 99 MG/DL (74-106); SODIUM (NA) 140 MEQ/L (136-145)
[2018-01-20 06:17] LABS: CHOLESTEROL 114 MG/DL (120-200); TRIGLYCERIDES 107 MG/DL (42-150)
[2018-01-20 06:18] LABS: CHOLESTEROL/ HDL RATIO 2.72 RATIO; HDL CHOLESTEROL 41.9 MG/DL (40.0-60.0); LDL CHOLESTEROL 51 MG/DL (0-99)
[2018-01-20] MEDS ORDERED: ISOSORBIDE MONONITRATE 30 MG CR TAB (IMDUR) PO SCH (07:00)
--- NOTE | 2018-01-20 08:32 | PD.CARD.PN ---
Subjective Subjective Remarks No angina, dyspnea, dizziness, palpitations. Slept well. Objective Medications Item Value Date Time Aspirin 81 mg 01/20/18 0900 (Ecotrin Ec) DAILY/PO Isosorbide 30 mg 01/20/18 0700 Mononitrate DAILY@07/PO 01/20/18 0606 (Imdur) Enalapril Maleate 5 mg 01/19/18 09 (Vasotec) BID/PO 01/19/182027 Metoprolol 50 mg 01/19/18 0900 Tartrate BID/PO 01/19/182027 (Lopressor) Atorvastatin 40 mg 01/19/18 0900 Calcium DAILY/PO 01/19/18 1015 (Lipitor) Enoxaparin Sodium 40 mg 01/19/18 0300 (Lovenox Inj) Q24H/SQ 01/20/18 0345 Current Medications Medications (Trade) Dose Ordered Sig/Ruth Ann Route Start Time Stop Time Status Last Admin (NS Flush) 2 ml UNSCH PRN IV FLUSH 01/19/18 01:00 (NS Flush) 2 ml BID IV FLUSH 01/19/18 09:00 01/19/18 20:29 (Tylenol) 650 mg Q4H PRN PO 01/19/18 01:00 (Lovenox Inj) 40 mg Q24H SQ 01/19/18 03:00 01/20/18 03:45 (Narcan Inj) 0.4 mg UNSCH PRN IV PUSH 01/19/18 01:00 (Milk Of Magnesia Liq) 30 ml Q12H PRN PO 01/19/18 01:00 (Senokot) 17.2 mg Q12H PRN PO 01/19/18 01:00 (Dulcolax Supp) 10 mg DAILY PRN RECTAL 01/19/18 01:00 (Lactulose Liq) 30 ml DAILY PRN PO 01/19/18 01:00 (Vasotec) 5 mg BID PO 01/19/18 09:00 01/19/18 20:28 (Lopressor) 50 mg BID PO 01/19/18 09:00 01/19/18 20:28 (Lipitor) 40 mg DAILY PO 01/19/18 09:00 01/19/18 10:15 Sodium Chloride 1,000 ml @ 100 mls/hr Q10H IV 01/19/18 07:45 01/24/18 07:44 (Benadryl) 50 mg ACCOUNTING INSTRUCTOR PO 01/19/18 07:45 01/23/18 07:44 (Valium) 10 mg ACCOUNTING INSTRUCTOR PO 01/19/18 07:45 01/23/18 07:44 (Versed Inj) 1 mg ACCOUNTING INSTRUCTOR IV PUSH 01/19/18 07:45 01/23/18 07:44 (Atropine Inj) 0.5 mg UNSCH PRN IV 01/19/18 14:15 (Ecotrin Ec) 81 mg DAILY PO 01/20/18 09:00 (Imdur) 30 mg DAILY@07 PO 01/20/18 07:00 01/20/18 06:06 Vital Signs / I&O Vital Signs Date Time Temp Pulse Resp B/P (MAP) Pulse Ox O2 Delivery O2 Flow Rate FiO2 01/20/18 06:00 73 01/20/18 05:00 72 01/20/18 04:00 Room Air 01/20/18 04:00 98.5 82 20 137/80 (99) 96 01/20/18 04:00 82 01/20/18 03:00 70 01/20/18 02:00 71 01/20/18 01:00 70 01/20/18 00:00 69 01/20/18 00:00 Room Air 01/20/18 00:00 98.2 69 20 126/67 (86) 97 01/19/18 23:00 70 01/19/18 22:00 72 01/19/18 21:00 76 01/19/18 21:00 21 01/19/18 20:00 69 01/19/18 20:00 Room Air 01/19/18 20:00 98.4 69 22 136/76 (96) 98 01/19/18 18:06 98.0 79 15 126/78 (94) 99 01/19/18 17:15 98.3 75 15 124/77 (93) 96 01/19/18 14:13 97 Room Air I/O 01/19/18 01/19/18 01/19/18 01/20/18 01/20/18 01/20/18 07:00 15:00 23:00 07:00 15:00 23:00 Intake Total 480 ml Output Total 600 ml Balance -120 ml Intake Oral 480 ml Output Urine Total 600 ml # Bowel Movements 0 Physical Exam GENERAL: Well developed, well nourished. No acute distress. HEENT: Jugular venous pressure is normal. CHEST: Lungs clear to auscultation bilaterally. Unlabored respiratory effort. CARDIAC: Regular rate and rhythm without S3, S4, or murmur. ABDOMEN: Soft, nontender, no hepatosplenomegaly. Bowel sounds present. EXTREMITIES: No clubbing, cyanosis, or edema. Laboratory Laboratory Tests Test 01/19/18 11:40 01/20/18 05:16 Troponin I 4.39 NG/ML Blood Urea Nitrogen 9 MG/DL Creatinine 0.88 MG/DL Random Glucose 99 MG/DL Calcium Level 8.8 MG/DL Sodium Level 140 MEQ/L Potassium Level 3.7 MEQ/L Chloride Level 103 MEQ/L Carbon Dioxide Level 29.1 MEQ/L Anion Gap 8 MEQ/L Estimat Glomerular Filtration Rate 85 ML/MIN Triglycerides Level 107 MG/DL Cholesterol Level 114 MG/DL LDL Cholesterol 51 MG/DL HDL Cholesterol 41.9 MG/DL Cholesterol/HDL Ratio 2.72 RATIO Assessment and Plan Problem List: (1) CAD (coronary artery disease) ICD Codes: I25.10 - Atherosclerotic heart disease of [place] coronary artery without angina pectoris Status: Chronic Plan: Stable s/p NSTEMI. No further angina. 4 of 5 grafts patent on cath yesterday. Jump graft off MEJIAS going to diagonal occluded, likely supplied small territory. REC continued medical therapy; OK to discharge today from cardiac standpoint, same home medications plus isosorbide mononitrate 30 mg qd, 4 week f/u (2) Ischemic cardiomyopathy ICD Codes: I25.5 - Ischemic cardiomyopathy Status: Chronic Plan: Stable. Compensated. EF by cath possibly lower than 2 years ago by echo , now about 25%. Continue beta nam, BENITO-I. (3) Hyperlipidemia ICD Codes: E78.5 - Hyperlipidemia, unspecified Status: Chronic Plan: Good lipid profile. Continue statin therapy. Code Status full code Discussed Condition With patient and yesterday with Problem Qualifiers (1) CAD (coronary artery disease): Qualified Codes: I25.110 - Atherosclerotic heart disease of [place] coronary artery with unstable angina pectoris (2) Hyperlipidemia: Qualified Codes: E78.2 - Mixed hyperlipidemia Mars Morton MD January 20, 2018 08:32
[2018-01-20] MEDS ORDERED: ASPIRIN EC 81 MG TABEC PO SCH (09:00)
[2018-01-20] MEDS: ENALAPRIL MALEATE 5 MG TAB PO SCH (09:46)
[2018-01-20] MEDS: METOPROLOL TARTRATE 50 MG TAB PO SCH (09:47)
[2018-01-20] MEDS: SODIUM CHLORIDE 0.9% FLUSH 10 ML FLUSH IV FLUSH SCH (09:47)
[2018-01-20] MEDS: ATORVASTATIN 40 MG TAB PO SCH (09:47)
--- NOTE | 2018-01-20 09:54 | HHI.PR ---
Subjective Remarks seen with at bedside- d/w them doing well no pain telemetry- paced rhtym Objective Vitals Vital Signs Date Time Temp Pulse Resp B/P (MAP) Pulse Ox O2 Delivery O2 Flow Rate FiO2 01/20/18 09:37 98.0 80 19 123/67 (85) 97 01/20/18 09:37 97 Room Air 01/20/18 06:00 73 01/20/18 05:00 72 01/20/18 04:00 Room Air 01/20/18 04:00 98.5 82 20 137/80 (99) 96 01/20/18 04:00 82 01/20/18 03:00 70 01/20/18 02:00 71 01/20/18 01:00 70 01/20/18 00:00 69 01/20/18 00:00 Room Air 01/20/18 00:00 98.2 69 20 126/67 (86) 97 01/19/18 23:00 70 01/19/18 22:00 72 01/19/18 21:00 76 01/19/18 21:00 21 01/19/18 20:00 69 01/19/18 20:00 Room Air 01/19/18 20:00 98.4 69 22 136/76 (96) 98 01/19/18 18:06 98.0 79 15 126/78 (94) 99 01/19/18 17:15 98.3 75 15 124/77 (93) 96 01/19/18 14:13 97 Room Air I/O 01/19/18 01/19/18 01/19/18 01/20/18 01/20/18 01/20/18 07:00 15:00 23:00 07:00 15:00 23:00 Intake Total 480 ml Output Total 600 ml Balance -120 ml Intake Oral 480 ml Output Urine Total 600 ml # Bowel Movements 0 Result Diagram: 01/18/18 2235 01/20/18 0516 Imaging Last Impressions Chest X-Ray 01/18/18 0000 Signed Impressions: CONCLUSION: No acute cardiopulmonary disease. Objective Remarks awake and alert, no acute distress anicteric lungs- clear regular rhythm abdomen soft, nontender right groin- no hematoma LE- no edema, goo peripheral pusles neuro exam- unremarkable Procedures 01/19- cardiac cath A/P Assessment and Plan 72-year-old male with a history of anxiety, CHF, hypertension, CAD, CO, pacemaker/defibrillator presents to the ED with complaints of chest pain. ACS s/p cardiac cath - 3VD disease- patent [facility] History of CABG clered by cardiology for DC - continue home meds + Imdur - Leukocytosis, WBC 15.5 likely stress related -Chest x-ray reviewed and shows no acute pulmonary disease Hypertension, chronic, controlled -Resume home medications enalapril and metoprolol Hyperlipidemia, chronic-resume home simvastatin DC home toay OP ff up with Dr. Morton 4 weeks and PCP- [facility] - 3-5 days diet- ehart healthy activity- as tolerated, no eavy lifting,strenuous activity Meds - continue home meds + Imdur Hugh Oneill MD January 20, 2018 09:54
[2018-01-20] MEDS ORDERED: ISOS30TA3 PO (09:59)
--- NOTE | 2018-01-20 13:57 | EKG ---
Date Performed: 01/19/2018 Time Performed: 11:03:18 PTAGE: 72 years EKG: ELECTRONIC ATRIAL PACEMAKER ELECTRONIC VENTRICULAR PACEMAKER ABNORMAL RHYTHM ECG PREVIOUS TRACING : 01/19/2018 04.44 DOCTOR: Benedicto Warner Interpretating Date/Time 01/20/2018 13:55:14
[2018-01-21 13:14] LABS: HEMOGLOBIN A1C 5.9 % (4.3-6.0)
== END 2018-01-20 10:51 | disposition home or self-care (01) ==
LOC: NEPC 22:19 → NEDA 01-19 00:49 → NEDH 01-19 07:40 → HCIS 01-19 17:16
PROVIDERS: ADMIT Internal Medicine; ATTEND Internal Medicine
DX: I25.110 Atherosclerotic heart disease of native coronary artery with unstable angina pectoris (principal); I25.2 Old myocardial infarction; I11.0 Hypertensive heart disease with heart failure; I50.9 Heart failure, unspecified; E78.2 Mixed hyperlipidemia; F41.9 Anxiety disorder, unspecified; R06.02 Shortness of breath; Z95.810 Presence of automatic (implantable) cardiac defibrillator; R79.89 Other specified abnormal findings of blood chemistry
CPT/HCPCS: 71045; 80048; 80061; 82550; 82552; 83036; 83735; 84484; 85002; 85007; 85027; 85610; 85730; 93005; 93459; 93571; 96360; 96372; 99152; 99153; 99285; C1760; C1769; C1887; C1893; G0269; G0378; J1644; J1650; J2250; J2270; J3010; J7040; Q9967